=== PATIENT | male | born 1995 ===

== ENCOUNTER 2025-09-08 16:38 | Emergency (ER) | payer SELFPAY ==
[2025-09-08 16:50] VITALS: PULSE 100; RESP 18; TEMP 36.6; O2SAT 99; BMI 34.2
--- NOTE | 2025-09-08 16:56 | ED_ITS ---
HPI - General Adult General Chief complaint: Wound/Laceration Stated complaint: Suture Removal Time Seen by Provider: 09/08/25 16:50 Source: patient, RN notes reviewed and old records reviewed Mode of arrival: ambulatory Limitations: no limitations History of Present Illness ED Provider: Od[facility] narrative: Patient is a 30 year-old male presenting to the ED for removal of sandy from his head which were placed at [facility] after a head injury at work. Reports occasional headaches at night, was also diagnosed with a concussion at the time of his injury. BP elevated in triage, denies history of HTN. Denies current headache, vision changes, chest pain, shortness of breath, dizziness or lightheadedness. Does not currently have a PCP. MD complaint: staple removal Related Data Allergies Allergy/AdvReac Type Severity Reaction Status Date / Time No Known Allergies (No Known Allergy Verified 09/08/25 16:51 Allergies*) Review of Systems 2 Review of Systems: as per hpi Yes all other systems are reviewed and are negative Constitutional: Constitutional: Reports as per HPI [facility] Social History Social History Advance Directives: No Advance Directives Information Provided: Yes Do you have a plan to hurt others: No Plan Physical Exam ED Vital Signs: Vital Signs - 24 hr 09/08/25 16:50 Temperature 98 F Pulse Rate 100 Respiratory Rate 18 Pulse Oximetry 99 Oxygen Delivery Method Room Air BMI result Body Mass Index 34.2 Vital signs have been reviewed and appear to be correct. Blood pressure elevated. Heart rate normal. Respiratory rate normal. Temperature normal. Oxygen saturation normal. Const General: cooperative, healthy appearing and no acute distress Orientation/consciousness: oriented to person, oriented to place, oriented to time and patient oriented x3 Limitations: no limitations HENMT Head: Yes normocephalic and Yes atraumatic Head images: 2 1. 2 sandy, wound well healed, no erythema, warmth, drainage Ears: external ears normal General nose exam: Normal external nose present Face and sinus: Yes face symmetric Mouth: oropharynx normal and moist mucous membranes Throat: Yes uvula midline Eyes Pupils: Equal, round and reactive pupils present Neck Neck: Yes normal visual inspection and Yes supple Resp Effort & Inspection: normal respiratory effort and able to speak in complete sentences Auscultation: clear to auscultation bilaterally Cardio Rate: regular rate Rhythm: regular rhythm Heart sounds: S1 normal heart sound present and S2 normal heart sound present GI Palpation (GI): Soft to palpation and nontender Auscultation: normoactive bowel sounds General: Yes no CVA tenderness Back/Spine/Pelvis Back: no CVA tenderness Skin General skin exam: elasticity normal and turgor normal Neuro General: oriented to person, oriented to place, oriented to time, patient oriented x3, moves all extremities, no focal motor deficits and CN's II-XI intact bilaterally Cranial nerves: Yes Equal, round and reactive pupils present Cognition (Neuro): normal cognition Extrem General: Yes full ROM, Yes no pedal edema and Yes no calf tenderness Psych Mental Status: mental status grossly normal Affect: normal affect Thought process: Normal thought process present Medical Decision Making Medical Decision Making [facility] Narrative: Patient is a 30 year-old male presenting to the ED for removal of sandy from his head which were placed at [place] after a head injury at work. On exam patient is awake, A+Ox3, hypertensive, VS otherwise WNL, afebrile, normal neurological exam without focal deficits, physical exam findings as above. Given reported symptoms and physical exam findings, initial differential includes but is not limited to staple removal, HTN, white coat syndrome. 2 sandy removed without difficulty with success, wound appears well healed. Discussed elevated blood pressure reading with the patient. He is currently asymptomatic. He does note that he was told at [facility] that his blood pressure was elevated there as well. He does not currently have a PCP. Discussed with patient the importance of managing hypertension if this is not related to white coat syndrome and dangers of untreated hypertension. Will provide patient with resources for establishing care with a primary care provider. Return precautions discussed. Patient verbalized understanding of and agreement with plan. Differential Diagnosis Differential Diagnoses: The differential diagnosis associated with the presentation includes as per mdm Admission/Observation Consideration of admission/observation: Escalation of care including admission/observation considered Patient would have been admitted to the hospital and transferred to appropriate facility had their clinical presentation warranted hospital admission. External Record Review External record reviewed: Inpatient record, Office record and Outpatient record Discharge Plan Discharge Clinical Impression: Removal of sandy, Hypertension Patient Disposition: Home, Self-Care Instructions: Hypertension (ED) Additional Instructions: You were seen in the emergency department today for staple removal from your scalp. You had 2 sandy removed without difficulty. Your wound appears to be healing well. Your blood pressure was noted to be very high in the emergency department today. It is important that you establish care with a primary care provider who can manage your blood pressure outpatient. Return to the emergency department if you develop severe headache, changes in vision, dizziness or lightheadedness, fainting, chest pain, shortness of breath, or any other new or concerning symptoms. [place] [facility] [place] [facility] [place]Provider Group, Internal Medicine] - 1 week Clinical Impression: Hypertension Khang Toledo MD [Physician, Internal Medicine] - 1 week Clinical Impression: Hypertension Print Language: Occitan
[2025-09-08 17:40] VITALS: BP 0/0; PULSE 100; RESP 18; TEMP 36.6; O2SAT 99
== END 2025-09-08 17:41 | disposition home or self-care (01) ==
PROVIDERS: Emergency Provider Emergency Medicine Emergency Medical Services
DX: Z48.02 Encounter for removal of sutures (principal); I10 Essential (primary) hypertension
CPT/HCPCS: 99282